=== PATIENT | female | born 1955 | race Caucasian/White ===

== ENCOUNTER → 2020-12-14 | Outpatient (CLI) | payer BC ==
[~2020-12-14] VITALS: Ht 172.7 cm; Wt 70.3 kg
[~2020-12-14] MED LIST: BIOTIN10 MG PO; COQ-1030 MG PO; FISH OIL 1,0001 EAC9 PO; IBUPROFEN 600600 M1 PO; NEURONTIN100 MG PO; SIMVASTATIN PO; SUPER THERAVIT1 EACH PO
[2020-12-14 11:12] VITALS: BP 120/77
--- NOTE | 2020-12-14 11:21 | NUR ---
Pain Clinic Assessment: 1. History of Osteoarthritis: BACK History of Rheumatoid Arthritis: Not Applicable 2. Height: 5 ft. 8 in. 172.7 cm. Weight: 155.0 lb. oz. 70.308 kg. Patient's BMI: 23.6 3. Vital Signs: BP: 120/77 Pulse: 91 Resp: 16 Temp: 02 Sat: 98 ECG Mon: 4. Pain Intensity: 8 5. Fall Risk: Dizziness: N Needs help standing or walking: N Fallen in the last 3 months: N Fall risk comments: 6. Patient on Blood Thinner: None 7. History of Hypertension: N 8. Opioid Therapy greater than 6 weeks: Opiate Contract Signed: 9. Risk Assessment Tool Provided: LOW RISK 3 10. Functional Assessment Tool: 11. Recreational Drug Use: Never Drug Type: Tobacco Use: Never Smoker Tobacco Type: Amount or Packs/day: How Many Years: Alcohol Use: Yes Frequency: Daily Quant: 2
--- NOTE | 2020-12-28 09:51 | HPC ---
[address] [address] PAIN MANAGEMENT CONSULTATION Name: YADIRA ALARCON Room #: REG CYNTHIA GaminoKarlee#: [id number] Admission: 12/14/20 Attend Phys: Pablito Post DO Discharge: Date of : 51 Report #: [id number] THIS REPORT FOR: cc: Steph Ulloa,Steph De Anda,Pablito Barney DO ~ cc: Janelle Johnston M.D. DATE OF SERVICE: 12/14/2020 REFERRING PHYSICIAN: Janelle Johnston M.D., neurosurgeon. CHIEF COMPLAINT: Low back pain, bilateral lower extremity pain with paresthesias, right greater than left. HISTORY OF PRESENT ILLNESS: As you know, the patient is a very pleasant 65-year-old female who reports longstanding history of low back pain, bilateral lower extremity pain with paresthesias, right greater than left, that began in 02/2018, no inciting injury or trauma. The patient has trialed conservative treatment including [id number] medications, rest and relaxation. She has tried more aggressive treatment utilizing medication management from a prescription standpoint including oxycodone, hydrocodone and gabapentin without benefit. The patient has been referred on to see Neurosurgery to discuss surgical options to address her ongoing suspected lumbar radiculopathy. The patient was seen by Dr. Janelle Johnston in consultation to discuss surgical options. It was determined at the initial visit that the patient should trial possible epidural injections under fluoroscopic guidance before moving forward with surgical procedure. It was shown that the patient had moderate to severe right and severe left neural foraminal narrowing at the L4-L5 level. She had mild spinal stenosis at the L5-S1 level, moderate spinal stenosis at the L4-L5 level. These findings prompted initial referral to Neurosurgery. Findings also showed that at L3-L4, there is severe spinal stenosis and severe foraminal narrowing. The patient was referred on to our clinic to discuss treatment options. The patient reports today her pain is intermittent in nature. She describes the pain as more of a burning sensation. She places current pain score 7/10. Daily average at 10/10, worst pain has been 10/10. The patient states the pain is exacerbated with sitting, standing and kneeling, or bending over. Pain improves with lying down. She has been referred to our service to discuss interventional treatment options to address suspected lumbar radiculopathy. PAST MEDICAL HISTORY: 1. Dyslipidemia. 2. Degenerative joint disease. 3. Cardiovascular disease. 4. Chronic low back pain. [address] [address] PAIN MANAGEMENT CONSULTATION Name: YADIRA ALARCON Room #: REG [facility].#: [id number] Admission: 12/14/20 Attend Phys: Pablito Post DO Discharge: Date of : 51 Report #: [id number] PAST SURGICAL HISTORY: 1. Hysterectomy. 2. Mitral valve repair. SOCIAL HISTORY: The patient denies tobacco, IV or illicit drug use. Admits to approximately 1-2 alcohol beverages per day. She is employed as a professor. She is working, not receiving workmen's compensation nor is trying to obtain disability benefits. Not in litigation in regards to pain. She is unaccompanied at today's visit. REVIEW OF SYSTEMS: Positive for night sweats and fever, wearing corrective eyewear, nocturia, rash and itching, changes in skin color and texture, changes in hair and nail texture. Numbness and tingling sensations, insomnia, bleeding and bruising tendencies. All other review of systems negative per 12-point review of systems other than those listed in history of present illness. PAIN IMPACT SCORE: 45/70, moderate to severe interference of daily activities secondary to pain. ALLERGIES: No known drug allergies. CURRENT MEDICATIONS: Coenzyme Q 30 mg once a day, biotin 10 mg once a day, Stendal-3 fish oil 1 tab per day, multivitamin 1 tab per day, simvastatin 20 mg per day, ibuprofen 600 mg once a day, gabapentin 100 mg 3 times a day. IMAGING: MRI lumbar spine obtained 11/14/2020 shows T12-L1 unremarkable, L1-L2 shows severe facet arthropathy, ligamentum flavum hypertrophy, mild central canal and lateral recess stenosis, moderate bilateral neural foraminal narrowing. L2-L3 shows disk bulge, severe facet arthropathy, ligamentum flavum hypertrophy, mild central canal stenosis and right lateral recess stenosis, mild to moderate bilateral neural foraminal narrowing. L3-L4 shows disk bulge, right lateral protrusion, severe facet arthropathy, ligamentum flavum thickening, severe central canal stenosis and lateral recess narrowing. Moderate to severe right and moderate left neural foraminal narrowing. L4-L5 shows disk bulge with right lateral protrusion, severe facet arthropathy, ligamentum flavum hypertrophy, moderate central canal left greater than right stenosis, moderate to severe right and severe left neural foraminal narrowing. L5-S1 disk bulge with left lateral protrusion, severe facet arthropathy, ligamentum flavum hypertrophy, mild central canal stenosis, mild right and moderate left neural foraminal narrowing. PHYSICAL EXAMINATION: VITAL SIGNS: Blood pressure 120/77, pulse 91, respiratory rate 16, and unlabored. The patient 98% on room air. Height 5 feet 8 inches tall, weight 155 pounds, BMI calculated 23.6. [address] [address] PAIN MANAGEMENT CONSULTATION Name: DORIANYADIRA MOISÉS Room #: REG [facility]#: [id number] Admission: 12/14/20 Attend Phys: Pablito Post DO Discharge: Date of : 51 Report #: [id number] GENERAL: Well-developed, well-nourished, well-hydrated 65-year-old female appearing stated age, pain is rated today at 8/10. HEENT: Normocephalic, atraumatic. Pupils equal, round and responsive to light. Extraocular muscles are intact. Speech fluent. The patient deemed a good historian. She is wearing a mask in compliance with COVID-19 regulations. LUNGS: Appear clear. No wheezes, rhonchi or rales. CARDIOVASCULAR: Regular. No appreciable gallop, no rub. ABDOMEN: Soft. EXTREMITIES: Show no clubbing, no cyanosis, no edema. MUSCULOSKELETAL: Lower extremity strength equal and symmetrical 5/5. Slight giveaway strength noted with hip extension and knee flexion bilaterally. Seated straight leg raising is positive. Supine straight leg raising positive. JACQUELYN test is negative. Modified Gaenslen's positive for axial low back pain. Ankle clonus negative. Babinski is negative. Muscle bulk and tone is equal and symmetrical in lower extremities. Deep tendon reflexes are symmetrical, but diminished at both the patella and Achilles. Gait is antalgic favoring right lower extremity over left. ASSESSMENT: 1. Symptomatic lumbar radiculopathy. 2. Severe central canal stenosis of lumbar spine. 3. Severe lateral recess stenosis of lumbar spine. 4. Severe neural foraminal stenosis of lumbar spine. 5. Lumbosacral spondylosis with radiculopathy. 6. Displacement of lumbar intervertebral disk with radiculopathy. 7. Lumbar degeneration. PLAN: 1. Based on today's physical exam and history the patient has provided, the description the patient uses in regards to pain as well as the descriptors the patient uses in regards to the symptoms, the likely source of the patient's pain is lumbar radiculopathy. The patient and I discussed at length today the treatment options we have for lumbar radiculopathy after reviewing her MRI and correlating those findings to her current symptoms which took over 18 minutes of time today. We discussed the following with the patient for treatment: We discussed physical therapy, stretching exercise, core strengthening as a treatment approach. We discussed medication management for which she is seeing excellent benefit when she takes her gabapentin 100 mg 3 times a day with near complete resolution of symptoms. She has some mild somnolence with the medication, but this is improving when she uses the medication more frequently. We discussed lumbar epidural injections for which the patient was referred to our clinic. We also discussed dorsal column stimulator and surgical options. After reviewing the risks and benefits of all proposed treatment options, the patient chose to continue current medication management. 2. The patient is to take gabapentin 100 mg 3 times a day. She has this medication available, does not need a refill of the therapy. I recommend that [address] [address] PAIN MANAGEMENT CONSULTATION Name: YADIRA ALARCON Room #: REG CYNTHIA Cao#: [id number] Admission: 12/14/20 Attend Phys: Pablito Post DO Discharge: Date of : 51 Report #: [id number] she continue to use the medication, assuming no side effects and good analgesic benefit. At present, she states she is receiving both and we recommend she continue the therapy. She does not need a prescription of the medication today. 3. We plan to see the patient back in followup visit on an as needed basis for a possible lumbar epidural injection. We will be available to see her back on an as needed basis to undergo the procedure, so we recommend if she is doing well with medications to continue that therapy. 4. We wish to thank the referring physician, Dr. Janelle Johnston for the opportunity to see the patient in consultation. We will keep you apprised of response to treatment as we address lumbar radiculopathy secondary to severe central canal and severe lateral recess stenosis. Again, we wish to thank you for the opportunity to see the patient in consultation. <ELECTRONICALLY SIGNED> By: Pablito Post DO 12/28/20 [id number] Pablito Post DO /nt
== END ==
LOC: PAIN 07:12
PROVIDERS: ATTEND Anesthesiology Pain Medicine
DX: M47.26 Other spondylosis with radiculopathy, lumbar region (principal); M48.061 Spinal stenosis, lumbar region without neurogenic claudication; M47.27 Other spondylosis with radiculopathy, lumbosacral region; M51.16 Intervertebral disc disorders with radiculopathy, lumbar region; Z79.899 Other long term (current) drug therapy; Z79.891 Long term (current) use of opiate analgesic